=== PATIENT | male | born 1940 | race Caucasian/White ===

== ENCOUNTER 2016-08-31 15:10 | Emergency (ER) | payer OTHER ==
[~2016-08-31] VITALS: Ht 177.8 cm; Wt 71.9 kg
[~2016-08-31 15:10] MED LIST: ALLOPURINOL300 MG PO; AMLODIPINE BESYL5 MG PO; CRESTOR20 MG PO; DICYCLOMINE HCL20 MG PO; FOLIC ACID1 MG PO; ISOSORBIDE MONO10 M1 PO
[2016-08-31] MEDS ORDERED: PREDNISONE10 MG PO (15:35)
[2016-08-31] MEDS ORDERED: LORAZEPAM0.5 MG PO (15:35)
[2016-08-31] MEDS ORDERED: FLONASE16 G1 BOTH NARES (15:36)
[2016-08-31 16:44] LABS: EOSINOPHIL (%) 0.4 % (0-5); IMMATURE GRANULOCYTE (%) 0.6 % (0.0-0.7); IMMATURE GRANULOCYTE COUNT 0.1 K/uL; INSTRUMENT ABS NEUTROPHIL CT 8.5 K/uL; LYMPHOCYTE COUNT 0.4 K/uL (1.0-2.8); MCH 31.5 PG (29.0-34.0); MCHC 33.2 G/DL (30.0-36.0); MCV 94.9 FL (86-99); MEAN PLAT.VOLUME 10.2 uM^3 (9.0-12.4); MONOCYTE (%) 4.2 % (3-12); MONOCYTE COUNT 0.4 K/uL (0-0.8); NEUTROPHIL (%) 90.6 % (45-76); NEUTROPHIL COUNT 8.5 K/uL (1.8-6.4); PLATELET COUNT 119 K/uL (156-360); RBC DIS.WIDTH-CV 17.2 % (11.8-14.6); RBC DIS.WIDTH-SD 59.7 % (39-53); WHITE BLOOD COUNT 9.4 K/uL (4.1-10.2)
[2016-08-31 17:01] LABS: CHLORIDE 104 mEq/L (99-109); POTASSIUM 4.3 mEq/L (3.7-5.4); SODIUM 139 mEq/L (136-147)
[2016-08-31 17:02] LABS: GLUCOSE 138 mg/dL (70-99)
[2016-08-31 17:04] LABS: ANION GAP 11 MEQ/L (2-14)
[2016-08-31 17:06] LABS: GFR ESTIMATE (CALCULATED) 37 mL/min/
[2016-08-31 17:07] LABS: UREA NITROGEN (BUN) 51 mg/dL (9-23)
[2016-08-31 17:08] LABS: TROP-I INTERPRETATION NEGATIVE; TROPONIN-I 0.02 ng/mL (0.0-0.30)
[2016-08-31] MEDS ORDERED: LEVAQUIN500 MG PO (18:31)
[2016-08-31] MEDS ORDERED: ALBUTEROL2.5 MG/3 M IH ×2 (18:31→18:39)
[2016-08-31 19:45] VITALS: BP 132/79
== END 2016-08-31 19:46 | disposition home or self-care (01) ==
LOC: EME 15:10
PROVIDERS: Emergency Medicine
DX: J20.9 Acute bronchitis, unspecified (principal); C34.90 Malignant neoplasm of unspecified part of unspecified bronchus or lung; I10 Essential (primary) hypertension; Z87.891 Personal history of nicotine dependence; Z95.1 Presence of aortocoronary bypass graft
CPT/HCPCS: 71010; 71250; 80048; 83880; 84484; 85025; 93005; 94640; 99281; 99284